=== PATIENT | female | born 1945 | race Caucasian/White ===

== ENCOUNTER 2022-08-06 01:02 | Outpatient (CLI) | payer MEDICARE, SELFPAY ==
--- NOTE | 2022-08-06 | ETT_ITS ---
APPROVED REPORT Exam: Exercise Treadmill Patient Location: Out-Patient Room/Bed: Stress Nurse: Bettie Crystal RN Ordering Provider:BHAVNA CARMONA, Contact Number: [phone] BMI: 23.43 Baseline Rhythm: Sinus Rhythm Indications: DYSPNEA ON EXERTION Medical History Medical History: HLD, SVT Cardiac Medications: None Allergies: No known drug allergies Cardiac Risk Factors: FHX of CAD, Hyperlipidemia Previous Cardiac Procedures: None Pretest Chest Pain Characteristics: No chest pain Exercise History: Physically active Physical Disabilities: None Lung Sounds: Clear to auscultation Heart Sounds: Regular Stress Test Details Test: Exercise stress testing was performed using a Dilip protocol. Rest Stress HR Resting HR Supine: 76 bpm Max Heart Rate (APMHR): 142 bpm Resting HR Standin bpm Target HR (85% APMHR): 121 bpm Max HR Achieved: 143 bpm % of APMHR: 101 Recovery HR: 95 bpm HR response to stress: Normal HR response to stress BP Resting BP Supine: 132/68 mmHg Resting BP Standin/70 mmHg Max BP: 174/60 mmHg Recovery BP: 140/64 mmHg BP response to stress: Normal blood pressure response to stress. ECG Resting ECG: Sinus Rhythm Ectopy: None Stress ECG: Sinus Tachycardia ST Change: Horizontal/Downsloping ST depression Lead(s): inferior leads Stage: [address] Deviation: 0.5-1.0 mm Arrhythmia: PAC, PAC couplet Recovery ECG: Sinus Rhythm Recovery ST Change: No significant ST segment changes noted Recovery Arrhythmia: None Clinical Reason for Termination: Fatigue Stress Symptoms: General Fatigue Exercise duration: 09 min29 sec Highest Stage Reached: Stage 4: 4.2 mph at 16% grade. Exercise capacity: 10.94 METs [place] Treadmill Score: 8.1 Rate Pressure Product: [id number] Stress ECG Conclusion 1. The resting electrocardiogram was within normal limits 2. The patient exercised on the Dilip protocol and completed a workload of 10.94 METS, stopping due t o fatigue 3. Normal heart rate and blood pressure response to exercise. The patient achieved 100% of predicted heart rate for age 4. There was no electrocardiographic evidence of myocardial ischemia 5. There were no significant dysrhythmias [place] Treadmill Score is 8.1 which is Low risk. Stress Test Summary STAGE Time (mins) Speed (mph) Grade (%) HR BP SpO2 SYMPTOMS METS Supine 76 132/68 Standing 86 128/70 96 1 3 1.7 10 109 138/64 95 4.5 2 6 2.5 12 121 142/62 95 7 3 9 3.4 14 136 158/60 97 10 1 min recovery 130 172/62 3 min recovery 101 174/60 6 min recovery 95 140/64
== END 2022-08-06 01:22 ==
LOC: DI 01:02
PROVIDERS: Visit Provider Family Medicine
DX: R06.00 Dyspnea, unspecified (principal)
CPT/HCPCS: 93016; 93018; 93017

== ENCOUNTER → 2025-01-04 12:24 | Outpatient (BNVA) | payer MEDICARE, SELFPAY | PROVIDERS: PCP Family Medicine; Referring Provider Family Medicine; Visit Provider Nurse Practitioner Adult Health | DX: F03.90 Unspecified dementia, unspecified severity, without behavioral disturbance, psychotic disturbance, mood disturbance, and anxiety (principal) | CPT/HCPCS: 99215; G2212 ==